=== PATIENT | female | born 1960 | race American Indian/Alaskan Native ===

== ENCOUNTER 2017-06-15 17:24 | Emergency (ER) | payer MEDICAID ==
[2017-06-16] MEDS ORDERED: DELTASONE PO ONE (00:59)
[2017-06-16] MEDS ORDERED: ZOFRAN ODT PO ONE (00:59)
[2017-06-16] MEDS ORDERED: ROBITUSSIN PO ONE (00:59)
--- NOTE | 2017-06-16 01:00 | Emergency Department Report ---
Minor Respiratory - HPI Chief Complaint: Upper Respiratory Infection Stated Complaint: COUGHING/VOMITTING Time Seen by Provider: 06/16/17 00:58 Duration: 3 Days Pain Location: Facial Severity: moderate Minor Respiratory: Yes Rhinorrhea, Yes Able to Tolerate Fluids, Yes Cough (dry, non prrod), No Sore Throat, No Ear Pain, No Sick Contacts, No Hemoptysis, No Chest Pain, No Shortness of Breath, No Fever Other History: 56-year-old female presents to the ED complaining of cold-like symptoms with a progressive days. Patient states today symptoms that a bit worse and coughing got more intense and intermittent throughout the day. Patient admits history of childhood asthma but no other medical conditions. 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 She denies fever assess 2/nausea/abdominal pain since chest pains or shortness of breath ED Review of Systems ROS: Stated complaint: COUGHING/VOMITTING Other details as noted in HPI Constitutional: denies: chills, fever Eyes: denies: eye pain, eye discharge, vision change ENT: denies: ear pain, throat pain Respiratory: denies: cough, shortness of breath, wheezing Cardiovascular: denies: chest pain, palpitations Endocrine: no symptoms reported Gastrointestinal: denies: abdominal pain, nausea, diarrhea Genitourinary: denies: urgency, dysuria, discharge Musculoskeletal: denies: back pain, joint swelling, arthralgia Skin: denies: rash, lesions Neurological: denies: headache, weakness, paresthesias Psychiatric: denies: anxiety, depression Hematological/Lymphatic: denies: easy bleeding, easy bruising ED Past Medical Hx - Past Medical History Previous Medical History?: Yes Hx Hypertension: Yes - Surgical History Past Surgical History?: No - Social History Smoking Status: Never Smoker Substance Use Type: Alcohol, Marijuana - Medications Home Medications: Home Medications Medication Instructions Recorded Confirmed Last Taken Type ALBUTEROL Inhaler [ProAir HFA 2 puff IH QID PRN #1 device 06/16/17 Unknown Rx Inhaler] Acetamin/Codeine 120-12Mg/5 ml 5 ml PO TID PRN #60 ml 06/16/17 Unknown Rx [Tylenol/Codeine] Benzonatate [Tessalon Perles] 100 mg PO Q8HR #24 capsule 06/16/17 Unknown Rx Ibuprofen [Motrin] 600 mg PO Q8H PRN #30 tablet 06/16/17 Unknown Rx Minor Respiratory Exam - Exam General: Vital signs noted. No distress. Alert and acting appropriately. HEENT: Yes Moist Mucous Membranes, No Pharyngeal Erythema, No Pharyngeal Exudates, No Rhinorrhea, No Conjuctival Injection, No Frontal Tenderness, No Maxillary Tenderness Ear: Neither TM Bulge, Neither TM Erythema, Neither EAC Pain, Neither EAC Discharge Neck: Yes Supple, No Adenopathy Lungs: Yes Good Air Exchange, No Wheezes, No Ronchi, No Stridor, No Cough, No Labored Respirations, No Retractions, No Use of Accessory Muscles, No Other Abnormal Lung Sounds Heart: Yes Regular, No Murmur Abdomen: Yes Normal Bowel Sounds, No Tenderness, No Peritoneal Signs Skin: No Rash, No Edema Neurologic: Alert and oriented, no deficits. Musculoskeletal: Unremarkable. ED Course Vital Signs 06/15/17 17:38 Temperature 98.4 F Pulse Rate 95 H Respiratory 20 Rate Blood Pressure 140/98 O2 Sat by Pulse 98 Oximetry ED Medical Decision Making - Radiology Data Radiology results: report reviewed Normal x-ray findings, no acute findings - Medical Decision Making 56-year-old female presents with bronchitis. Fever resolved no fever during the ED stay. Patient received prednisone, albuterol treatment, Robitussin in ED for cough Discussed with pt symptomatic relief with [id number] medications. Discussed continue Tylenol and Motrin as needed for fever and pain. Discussed increase fluids and diet intake. Discussed rest much needed. Discussed daily vitamin C for immune booster. 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 Oxygen saturation on room air increased prior to discharge Patient's verbally states she understands and will comply the following instructions and follow-up Vital signs stable. Patient is in no acute distress Critical care attestation.: If time is entered above; I have spent that time in minutes in the direct care of this critically ill patient, excluding procedure time. ED Disposition Clinical Impression: URI with cough and congestion Disposition: TO HOME OR SELFCARE Is pt being admited?: No Does the pt Need Aspirin: No Condition: Stable Instructions: Upper Respiratory Infection (ED), Viral Syndrome (ED), Cold Symptoms (ED) Additional Instructions: Make sure to follow up with the primary care physician as discussed. Take all your medications as you've been prescribed. The x-rays were normal, you do not have pneumonia Or any lung infection If you have any worsening symptoms or develop new symptoms please return to ED immediately. Prescriptions: Acetamin/Codeine 120-12Mg/5 ml [Tylenol/Codeine] 5 ml PO TID PRN #60 ml PRN Reason: Pain ALBUTEROL Inhaler [ProAir HFA Inhaler] 2 puff IH QID PRN #1 device PRN Reason: Shortness Of Breath Benzonatate [Tessalon Perles] 100 mg PO Q8HR #24 capsule Ibuprofen [Motrin] 600 mg PO Q8H PRN #30 tablet PRN Reason: Pain Referrals: PRIMARY CARE, [Primary Care Provider] - 3-5 Days [facility] [Outside] - 3-5 Days [facility] [Outside] - 3-5 Days Forms: Work/School Release Form(ED) Time of Disposition: 01:31
--- NOTE | 2017-06-16 01:15 | XRay Report ---
FINAL REPORT EXAM: XR CHEST ROUTINE 2V HISTORY: prod cough COMPARISON: None available. FINDINGS:: Frontal and lateral views of the chest obtained. Cardiac silhouette is within normal limits. No focal consolidation or effusion. No pneumothorax. Visualized bony thorax is grossly intact. IMPRESSION:: No acute findings.
[2017-06-16] MEDS ORDERED: PROVENTIL IH ONE (01:26)
[2017-06-16 05:06] VITALS: BP 125/85
== END 2017-06-16 02:40 | disposition home or self-care (01) ==
LOC: ED 17:24
DX: J06.9 Acute upper respiratory infection, unspecified (principal); F12.10 Cannabis abuse, uncomplicated
CPT/HCPCS: 71046; 99283; J7512; Q0162

== ENCOUNTER 2018-05-09 10:39 | Outpatient (CLI) | payer MEDICAID ==
--- NOTE | 2018-05-09 12:16 | XRay Report ---
BILATERAL KNEES STANDING, AP VIEW History: Pain and unspecified knee. Findings: There is normal bone mineralization. No evidence for acute fracture or bone lesion. There is subtle irregularity involving the articular surface of the lateral tibial plateau and the right knee. This could represent chronic trauma, correlate with the patient's history. No significant joint pathology otherwise. The soft tissues are unremarkable. Impression: Question a chronic lateral tibial plateau fracture in the right knee. Otherwise, unremarkable exam.
== END 2018-05-09 10:40 | disposition home or self-care (01) ==
LOC: XRAY 10:39
PROVIDERS: ATTEND Orthopaedic Surgery
DX: M25.561 Pain in right knee (principal); M25.562 Pain in left knee; I10 Essential (primary) hypertension
CPT/HCPCS: 73565

== ENCOUNTER 2019-02-12 14:13 | Outpatient (CLI) | payer MEDICAID ==
--- NOTE | 2019-02-12 15:20 | XRay Report ---
RIGHT HIP, 2 VIEWS INDICATION: [id number]) PAIN IN RIGHT HIP. COMPARISON: None. IMPRESSION: No acute osseous or soft tissue abnormality. No significant DJD. Signer Name: Williams De La Cruz Jr, MD Signed: 02/12/2019 3:16 PM Workstation Name: [id number]
== END 2019-02-12 14:14 | disposition home or self-care (01) ==
LOC: XRAY 14:13
PROVIDERS: ATTEND Clinical Nurse Specialist Adult Health
DX: M25.551 Pain in right hip (principal)

== ENCOUNTER 2021-06-24 14:53 | Outpatient (CLI) | payer MEDICAID ==
--- NOTE | 2021-06-24 15:54 | XRay Report ---
BILATERAL HAND 3 VIEW(S) INDICATION / CLINICAL INFORMATION: BILATERAL HAND PAIN COMPARISON: None available. FINDINGS: BONES / JOINT(S): No acute fracture or subluxation. No significant arthritis. Bone mineralization xena ears within normal limits. SOFT TISSUES: No significant abnormality. ADDITIONAL FINDINGS: None. IMPRESSION: 1. No acute osseous findings. No specific pattern of arthritis. Signer Name: Jeff Agarwal II, MD Signed: 06/24/2021 3:50 PM Workstation Name: [id number]
== END 2021-06-24 14:54 | disposition home or self-care (01) ==
LOC: XRAY 14:53
PROVIDERS: ATTEND Clinical Nurse Specialist Adult Health
DX: M79.641 Pain in right hand (principal); M79.642 Pain in left hand